=== PATIENT | female | born 1975 | race Caucasian/White ===

== ENCOUNTER 2017-07-24 09:00 | Emergency (ER) | payer OTHER ==
[~2017-07-24] VITALS: Ht 149.9 cm; Wt 113.4 kg
[~2017-07-24 09:00] MED LIST: ADDERALL 10 MG10 MG PO; AMBIEN 5 MG TABL5 M1 PO; APAP W/CODEINE1 TA2 PO; BACTRIM DS TAB1 EACH PO; BENADRYL25 MG PO; BENTYL 10 MG CA10 MG PO; COLESTIPOL HCL1 G1 PO; CREON 10 CAPSUL1 CA1 PER TUBE; CREON DR 36,001 EACH PO; DIFLUCAN150 MG PO; EFFEXOR XR75 MG PO; FLAGYL500 MG PO; FLEXERIL PO; HYDROCODON-ACE1 EAC7 PO; HYDROCODONE-AP1 EAC6 PO; HYDROXYCHLOROQ200 M1 PO; IBUPROFEN 800800 M1 PO; IBUPROFEN 800800 MG PO; KEFLEX500 MG PO; MACROBID 100 M100 M2 PO; MEDROLDOSEPACK PO; NEURONTIN 300300 M1 PO; NEURONTIN 400M400 M2 PO; NEXIUM40 MG PO; NORCO 5-325 TA1 EAC1 PO; NORCO 5-325 TA1 EACH PO; NORFLEX100 MG PO; OXYBUTYNIN 5 MG5 M2 PO; PANTOPRAZOLE SO40 M1 PO; PHENERGAN 25 MG25 M1 PO; PREDNISONE 10 M10 M1 PO; PROMS25 WY RECTAL; REGLAN 10 MG TA10 MG PO; REQUIP XL4 MG PO; RESTORIL7.5 MG PO; ROBAXIN500 MG PO; SEROQUEL 25 MG25 M1 PO; SILVADENE20 GM TP; SULFAZINE EC500 MG PO; TRAMADOL 50 MG50 MG; VALIUM2 MG PO; XANAX 0.25 MG0.25 MG PO; XANAX 0.5 MG0.5 MG PO; ZANTAC 150MG T150 MG PO
[2017-07-24] MEDS ORDERED: ONDANSETRON HCL4 M2 PO (09:08)
[2017-07-24] MEDS ORDERED: CARAFATE 1 GM TA1 G1 PO (09:08)
[2017-07-24] MEDS ORDERED: PRILOSEC2.5 MG PO (09:09)
[2017-07-24 09:36] LABS: URINE BILIRUBIN NEGATIVE (Negative); URINE BLOOD NEGATIVE (Negative); URINE CLARITY CLEAR; URINE COLOR YELLOW; URINE GLUCOSE-RANDOM NEGATIVE (Negative); URINE KETONES NEGATIVE (Negative); URINE LEUKOCYTES-REFLEX NEGATIVE (Negative); URINE NITRITE-REFLEX NEGATIVE (Negative); URINE PROTEIN NEGATIVE (Negative); URINE SPECIFIC GRAVITY 1.015 (1.005-1.030); URINE UROBILINOGEN 0.2 E.U./dl (0.2-1.0)
[2017-07-24 10:06] LABS: ABSOLUTE BASOPHILS 0.1 thou/uL (0.0-0.2); ABSOLUTE EOSINOPHILS 0.1 thou/uL (0.0-0.7); ABSOLUTE LYMPHOCYTES 1.6 thou/uL (0.8-5.3); ABSOLUTE MONOCYTES 0.6 thou/uL (0.0-1.2); ABSOLUTE NEUTROPHILS 4.6 thou/uL (1.6-8.1); EOSINOPHILS 1.9 %; HEMATOCRIT 36.8 % (37.0-47.0); HEMOGLOBIN 12.2 gm/dL (12.0-15.0); LYMPHOCYTES 23.4 %; MCH 30.9 pg (26.0-34.0); MCV 93.5 fL (80.0-100.0); MONOCYTES 8.2 %; MPV 7.8 fl. (7.2-11.1); NUCLEATED RBCS 0 /100WBC; PLATELET COUNT* 239 thou/uL (150-400); POLYS 65.5 %; RBC 3.94 mil/uL (4.20-5.00); WBC 6.9 thou/uL (4.0-11.0)
[2017-07-24 10:11] LABS: ANION GAP 9 mmol/L (7-16); BUN 17 mg/dL (7-18); CALCIUM 8.2 mg/dL (8.5-10.1); CHLORIDE 107 mmol/L (98-107); CO2 25 mmol/L (21-32); CREATININE 0.8 mg/dL (0.6-1.3); GLUCOSE 77 mg/dL (70-99); POTASSIUM 4.3 mmol/L (3.5-5.1); SODIUM 141 mmol/L (136-145)
[2017-07-24 10:17] LABS: ALBUMIN 3.4 g/dL (3.4-5.0); ALKALINE PHOSPHATASE 52 U/L (46-116); AMYLASE 41 U/L (25-115); LIPASE 110 U/L (73-393); SGOT 17 U/L (15-37); SGPT 20 U/L (30-65); TOTAL BILIRUBIN 0.2 mg/dL (<0.1-1.0); TOTAL PROTEIN 6.3 g/dL (6.4-8.2); TROPONIN-I LEVEL <0.06 ng/mL (<0.06)
[2017-07-24] MEDS ORDERED: NORCO 5-325 TA1 EACH PO (11:27)
[2017-07-24 11:32] VITALS: BP 152/70
--- NOTE | 2017-07-24 17:27 | EKG ---
[place] [address] ELECTROCARDIOGRAM REPORT Name: CARLOS A HEADLEY Room: [facility]#: [id number] Admission: 07/24/17 Attend Phys: Discharge: 07/24/17 Date of : 71 Report #: [id number] THIS REPORT FOR: //name// [facility] ED Test Date: 2017-07-24 Test Time: 09:38:43 Pat Name: CARLOS A HEADLEY Department: Room: Gender: F Cone Tender: Latoya BATRES : 1975 Requested By: Anika Emerson Order Number: [id number] MD: Ranjit Marcum Measurements Intervals [place] Rate: 70 P: 67 TX: 167 QRS: 62 QRSD: 91 T: 48 QT: 393 QTc: 425 Interpretive Statements Sinus rhythm Compared to ECG 05/30/2013 15:55:53 No significant changes Electronically Signed On 07-24-2017 17:27:35 COMMUNITY LEADER by Ranjit Marcum [email or web address] <ELECTRONICALLY SIGNED> By: Ranjit Marcum MD, [facility] 07/24/17 1727 0938 7 Ranjit Marcum MD, FACC /EPI
[2017-09-17] MEDS ORDERED: XANAX1 MG PO (10:34)
[2017-09-17] MEDS ORDERED: PHENERGAN 25 MG25 M1 PO (10:36)
[2017-09-17] MEDS ORDERED: SEROQUEL 50 MG50 MG PO (10:37)
[2017-09-17] MEDS ORDERED: BENTYL 10 MG CA10 M1 PO (10:38)
[2017-09-17] MEDS ORDERED: NORCO 5-325 TA1 EACH PO (12:21)
== END 2017-07-24 11:33 | disposition home or self-care (01) ==
LOC: M.ERS 09:00
PROVIDERS: Personal Emergency Response Attendant
DX: R10.12 Left upper quadrant pain (principal); R10.84 Generalized abdominal pain; K21.9 Gastro-esophageal reflux disease without esophagitis; Z90.49 Acquired absence of other specified parts of digestive tract; Z90.710 Acquired absence of both cervix and uterus; Z98.890 Other specified postprocedural states; Z88.8 Allergy status to other drugs, medicaments and biological substances; F10.99 Alcohol use, unspecified with unspecified alcohol-induced disorder

== ENCOUNTER 2018-12-24 18:29 | Emergency (ER) | payer OTHER ==
[~2018-12-24] VITALS: Ht 149.9 cm; Wt 72.6 kg
[~2018-12-24 18:29] MED LIST changes: +BENTYL 10 MG CA10 M1 PO; +CARAFATE 1 GM TA1 G1 PO; +ONDANSETRON HCL4 M2 PO; +PRILOSEC2.5 MG PO; +SEROQUEL 50 MG50 MG PO; +XANAX1 MG PO
[2018-12-24] MEDS ORDERED: SYNTHROID50 MCG PO (18:51)
[2018-12-24] MEDS ORDERED: ATENOLOL 25 MG25 M1 PO (18:52)
[2018-12-24] MEDS ORDERED: METHOTREXATE 22.5 MG PO (18:52)
[2018-12-24] MEDS ORDERED: PROTONIX40 M2 PO (18:52)
[2018-12-24] MEDS ORDERED: PREDNISONE 20 M20 MG PO (19:36)
[2018-12-24] MEDS ORDERED: BENADRYL25 MG PO (19:36)
[2018-12-24] MEDS ORDERED: PEPCID20 MG PO (19:36)
[2018-12-24 20:02] VITALS: BP 133/63
== END 2018-12-24 20:03 | disposition home or self-care (01) ==
LOC: M.ERS 18:29
DX: T78.40XA Allergy, unspecified, initial encounter (principal); K21.9 Gastro-esophageal reflux disease without esophagitis; F41.9 Anxiety disorder, unspecified; F32.9 Major depressive disorder, single episode, unspecified; J45.909 Unspecified asthma, uncomplicated; M06.9 Rheumatoid arthritis, unspecified; J44.9 Chronic obstructive pulmonary disease, unspecified; Z98.890 Other specified postprocedural states; Z90.49 Acquired absence of other specified parts of digestive tract; Z90.710 Acquired absence of both cervix and uterus; Z88.8 Allergy status to other drugs, medicaments and biological substances; Z88.6 Allergy status to analgesic agent; Z91.048 Other nonmedicinal substance allergy status

== ENCOUNTER 2019-01-09 19:28 | Emergency (ER) | payer OTHER ==
[~2019-01-09] VITALS: Ht 149.9 cm; Wt 68.0 kg
[~2019-01-09 19:28] MED LIST changes: +ATENOLOL 25 MG25 M1 PO; +METHOTREXATE 22.5 MG PO; +PEPCID20 MG PO; +PREDNISONE 20 M20 MG PO; +PROTONIX40 M2 PO; +SYNTHROID50 MCG PO
[2019-01-09 20:24] LABS: ABSOLUTE MONOCYTES 0.8 thou/uL (0.0-1.2); ABSOLUTE NEUTROPHILS 2.2 thou/uL (1.6-8.1); HEMATOCRIT 34.8 % (37.0-47.0); HEMOGLOBIN 11.5 gm/dL (12.0-15.0); LYMPHOCYTES 39.7 %; MCH 31.1 pg (26.0-34.0); MCHC 32.9 g/dL (28.0-37.0); MCV 94.5 fL (80.0-100.0); MONOCYTES 15.1 %; NUCLEATED RBCS 0 /100WBC; PLATELET COUNT* 213 thou/uL (150-400); POLYS 43.2 %; RBC 3.69 mil/uL (4.20-5.00); RDW-CV 12.5 % (10.5-14.5); WBC 5.1 thou/uL (4.0-11.0)
[2019-01-09 20:32] LABS: CALCIUM 8.7 mg/dL (8.5-10.1); CREATININE 0.7 mg/dL (0.6-1.3); POTASSIUM 4.2 mmol/L (3.5-5.1)
[2019-01-09 20:37] LABS: ALBUMIN 2.7 g/dL (3.4-5.0); TOTAL BILIRUBIN 0.4 mg/dL (<0.1-1.0); TOTAL PROTEIN 5.6 g/dL (6.4-8.2)
[2019-01-09] MEDS ORDERED: NORCO 5-325 TA1 EAC1 PO (21:26)
[2019-01-09] MEDS ORDERED: ONDANSETRON HCL4 M2 PO (21:26)
[2019-01-09 21:57] VITALS: BP 108/57
== END 2019-01-09 21:59 | disposition home or self-care (01) ==
LOC: M.ERS 19:28
PROVIDERS: Physician Assistant
DX: S16.1XXA Strain of muscle, fascia and tendon at neck level, initial encounter (principal); S09.8XXA Other specified injuries of head, initial encounter; R10.12 Left upper quadrant pain; M06.9 Rheumatoid arthritis, unspecified; F41.9 Anxiety disorder, unspecified; J44.9 Chronic obstructive pulmonary disease, unspecified; K21.9 Gastro-esophageal reflux disease without esophagitis; G47.00 Insomnia, unspecified; F32.9 Major depressive disorder, single episode, unspecified; Z88.5 Allergy status to narcotic agent; Z91.048 Other nonmedicinal substance allergy status; Z88.8 Allergy status to other drugs, medicaments and biological substances; Z98.890 Other specified postprocedural states; Z90.89 Acquired absence of other organs; Z90.49 Acquired absence of other specified parts of digestive tract; Z90.710 Acquired absence of both cervix and uterus; V49.50XA Passenger injured in collision with unspecified motor vehicles in traffic accident, initial encounter; Y93.89 Activity, other specified; Y92.89 Other specified places as the place of occurrence of the external cause; Y99.8 Other external cause status

== ENCOUNTER 2019-01-16 02:21 | Emergency (ER) | payer OTHER ==
[~2019-01-16] VITALS: Ht 149.9 cm; Wt 68.0 kg
[2019-01-16 04:40] LABS: URINE BILIRUBIN NEGATIVE (Negative); URINE BLOOD NEGATIVE (Negative); URINE CLARITY CLEAR; URINE COLOR YELLOW; URINE GLUCOSE-RANDOM NEGATIVE (Negative); URINE KETONES TRACE (Negative); URINE LEUKOCYTES-REFLEX NEGATIVE (Negative); URINE NITRITE-REFLEX NEGATIVE (Negative); URINE PROTEIN TRACE (Negative); URINE SPECIFIC GRAVITY >= 1.030 (1.005-1.030); URINE UROBILINOGEN 0.2 E.U./dl (0.2-1.0)
[2019-01-16 04:49] LABS: AMP/METHAMP Negative (Negative); BARBITURATES Negative (Negative); BENZODIAZEPINES POSITIVE (Negative); COCAINE Negative (Negative); METHADONE Negative (Negative); OPIATES Negative (Negative); PCP Negative (Negative); THC POSITIVE (Negative)
[2019-01-16 04:53] LABS: ABSOLUTE LYMPHOCYTES 1.9 thou/uL (0.8-5.3); ABSOLUTE MONOCYTES 0.9 thou/uL (0.0-1.2); ABSOLUTE NEUTROPHILS 4.7 thou/uL (1.6-8.1); BASOPHILS 0.5 %; EOSINOPHILS 0.4 %; HEMATOCRIT 33.6 % (37.0-47.0); HEMOGLOBIN 11.1 gm/dL (12.0-15.0); LYMPHOCYTES 24.5 %; MCH 30.9 pg (26.0-34.0); MCV 93.5 fL (80.0-100.0); MONOCYTES 12.4 %; NUCLEATED RBCS 0 /100WBC; PLATELET COUNT* 292 thou/uL (150-400); POLYS 62.2 %; RDW-CV 12.5 % (10.5-14.5); WBC 7.6 thou/uL (4.0-11.0)
[2019-01-16 05:02] LABS: CALCIUM 8.8 mg/dL (8.5-10.1); CREATININE 0.5 mg/dL (0.6-1.3); POTASSIUM 4.4 mmol/L (3.5-5.1)
[2019-01-16 05:07] LABS: ALBUMIN 2.9 g/dL (3.4-5.0); MAGNESIUM 1.2 mg/dL (1.8-2.4); TOTAL BILIRUBIN 0.4 mg/dL (<0.1-1.0); TOTAL PROTEIN 5.9 g/dL (6.4-8.2)
[2019-01-16] MEDS ORDERED: REGLAN 10 MG TA10 MG PO (05:43)
[2019-01-16 06:03] VITALS: BP 138/65
== END 2019-01-16 06:07 | disposition home or self-care (01) ==
LOC: M.ERS 02:21
PROVIDERS: Emergency Medicine
DX: S80.01XA Contusion of right knee, initial encounter (principal); S80.02XA Contusion of left knee, initial encounter; S40.012A Contusion of left shoulder, initial encounter; S50.11XA Contusion of right forearm, initial encounter; S60.031A Contusion of right middle finger without damage to nail, initial encounter; S00.81XA Abrasion of other part of head, initial encounter; E83.42 Hypomagnesemia; R11.2 Nausea with vomiting, unspecified; K21.9 Gastro-esophageal reflux disease without esophagitis; M06.9 Rheumatoid arthritis, unspecified; N80.9 Endometriosis, unspecified; J44.9 Chronic obstructive pulmonary disease, unspecified; F41.9 Anxiety disorder, unspecified; F32.9 Major depressive disorder, single episode, unspecified; K58.9 Irritable bowel syndrome, unspecified; G47.00 Insomnia, unspecified; Z98.890 Other specified postprocedural states; Z90.49 Acquired absence of other specified parts of digestive tract; Z90.710 Acquired absence of both cervix and uterus; Z90.89 Acquired absence of other organs; Z88.5 Allergy status to narcotic agent; Z91.048 Other nonmedicinal substance allergy status; Z88.8 Allergy status to other drugs, medicaments and biological substances; W01.198A Fall on same level from slipping, tripping and stumbling with subsequent striking against other object, initial encounter; Y93.01 Activity, walking, marching and hiking; Y92.410 Unspecified street and highway as the place of occurrence of the external cause; Y99.8 Other external cause status

== ENCOUNTER 2019-07-31 14:46 | Emergency (ER) | payer OTHER ==
[~2019-07-31] VITALS: Ht 149.9 cm; Wt 59.0 kg
[2019-07-31] MEDS ORDERED: TRAMADOL 50 MG50 MG PO (16:00)
[2019-07-31 16:12] VITALS: BP 118/72
== END 2019-07-31 16:14 | disposition home or self-care (01) ==
LOC: M.ERS 14:46
DX: S93.601A Unspecified sprain of right foot, initial encounter (principal); F41.9 Anxiety disorder, unspecified; J44.9 Chronic obstructive pulmonary disease, unspecified; F32.9 Major depressive disorder, single episode, unspecified; K21.9 Gastro-esophageal reflux disease without esophagitis; J45.909 Unspecified asthma, uncomplicated; Z90.49 Acquired absence of other specified parts of digestive tract; Z90.710 Acquired absence of both cervix and uterus; Z90.89 Acquired absence of other organs; Z88.5 Allergy status to narcotic agent; Z88.8 Allergy status to other drugs, medicaments and biological substances; Z79.899 Other long term (current) drug therapy; X50.1XXA Overexertion from prolonged static or awkward postures, initial encounter; Y93.01 Activity, walking, marching and hiking; Y92.89 Other specified places as the place of occurrence of the external cause; Y99.8 Other external cause status

== ENCOUNTER 2020-01-09 17:31 | Inpatient (IN) | payer OTHER, MEDICAID ==
[~2020-01-09] VITALS: Ht 149.9 cm; Wt 72.6 kg
[~2020-01-09 17:31] MED LIST changes: +TRAMADOL 50 MG50 MG PO
[2020-01-09 17:33] VITALS: BP 115/73
[2020-01-09] MEDS ORDERED: TRANSDERM-SCOP1 EACH TOP (17:38)
[2020-01-09 17:57] LABS: ABSOLUTE BASOPHILS 0.1 thou/uL (0.0-0.2); ABSOLUTE LYMPHOCYTES 2.6 thou/uL (0.8-5.3); ABSOLUTE MONOCYTES 0.8 thou/uL (0.0-1.2); ABSOLUTE NEUTROPHILS 4.6 thou/uL (1.6-8.1); BASOPHILS 0.6 %; EOSINOPHILS 0.1 %; HEMATOCRIT 35.7 % (37.0-47.0); HEMOGLOBIN 12.2 gm/dL (12.0-15.0); LYMPHOCYTES 32.6 %; MCH 32.8 pg (26.0-34.0); MCHC 34.2 g/dL (28.0-37.0); MCV 95.9 fL (80.0-100.0); MONOCYTES 9.8 %; MPV 7.7 fl. (7.2-11.1); NUCLEATED RBCS 0 /100WBC; PLATELET COUNT* 257 thou/uL (150-400); POLYS 56.9 %; RBC 3.72 mil/uL (4.20-5.00); RDW-CV 13.8 % (10.5-14.5); WBC 8.1 thou/uL (4.0-11.0)
[2020-01-09 18:05] LABS: CREATININE 1.2 mg/dL (0.6-1.3); POTASSIUM 3.8 mmol/L (3.5-5.1)
[2020-01-09 18:11] LABS: ALBUMIN 3.7 g/dL (3.4-5.0); TOTAL BILIRUBIN 0.3 mg/dL (<0.1-1.0); TOTAL PROTEIN 6.6 g/dL (6.4-8.2)
[2020-01-09 22:00] VITALS: BP 117/84; BP 119/87
[2020-01-10 00:10] LABS: URINE BILIRUBIN NEGATIVE (Negative); URINE BLOOD NEGATIVE (Negative); URINE CLARITY CLEAR; URINE COLOR YELLOW; URINE GLUCOSE-RANDOM NEGATIVE (Negative); URINE KETONES NEGATIVE (Negative); URINE LEUKOCYTES-REFLEX NEGATIVE (Negative); URINE NITRITE-REFLEX NEGATIVE (Negative); URINE PROTEIN TRACE (Negative); URINE SPECIFIC GRAVITY >= 1.030 (1.005-1.030); URINE UROBILINOGEN 0.2 E.U./dl (0.2-1.0)
[2020-01-10 00:15] LABS: AMP/METHAMP Negative (Negative); BARBITURATES Negative (Negative); BENZODIAZEPINES POSITIVE (Negative); COCAINE Negative (Negative); METHADONE Negative (Negative); OPIATES Negative (Negative); PCP Negative (Negative); THC POSITIVE (Negative)
[2020-01-10 04:00] VITALS: BP 103/66
[2020-01-10 05:32] LABS: ABSOLUTE LYMPHOCYTES 2.4 thou/uL (0.8-5.3); ABSOLUTE MONOCYTES 0.6 thou/uL (0.0-1.2); ABSOLUTE NEUTROPHILS 3.3 thou/uL (1.6-8.1); BASOPHILS 0.5 %; EOSINOPHILS 0.4 %; HEMATOCRIT 36.7 % (37.0-47.0); HEMOGLOBIN 12.4 gm/dL (12.0-15.0); LYMPHOCYTES 37.6 %; MCH 32.7 pg (26.0-34.0); MCHC 33.9 g/dL (28.0-37.0); MCV 96.2 fL (80.0-100.0); MPV 8.3 fl. (7.2-11.1); NUCLEATED RBCS 0 /100WBC; PLATELET COUNT* 214 thou/uL (150-400); POLYS 52.5 %; RBC 3.81 mil/uL (4.20-5.00); RDW-CV 13.5 % (10.5-14.5); WBC 6.4 thou/uL (4.0-11.0)
[2020-01-10 05:34] LABS: CALCIUM 7.5 mg/dL (8.5-10.1); CREATININE 0.9 mg/dL (0.6-1.3); POTASSIUM 3.6 mmol/L (3.5-5.1)
[2020-01-10 08:00] VITALS: BP 97/64
--- NOTE | 2020-01-10 13:27 | NUR ---
Pt is A&O. States that she is in the process of moving back in with her dad. Independent and active. No DME. Hx of HH post home IVABX approx 2 years ago. No hx of SNF. Goal is home at dc, no needs anticipated. Neuro following.
--- NOTE | 2020-01-10 14:01 | NUR ---
ASSUMED PT CARE AT 0730, PT AOX4 AND HAS NO C/O SHORTNESS OF BREATH BUT C/O MINOR HEADACHE. SEIZURE PRECAUTIONS IN PLACE. PT ENDED UP HAVING SOME RHYTHMIC TREMORS LATE THIS MORNING, DR NOTIFIED AND PRN XANAX AND ZOFRAN GIVEN. NEURO WORKED W/ PT THIS MORNING WELL, EEG AND MRI OF HEAD ORDERED. PT SO IN ROOM TODAY AND UPDATED ON POC. PT GOAL IS TO MAINTAIN SAFETY AND FIND CAUSE OF TREMORS. AM ASSESSMENT CHARTED, MEDS PER MAR, HOURLY ROUNDING OBSERVED, FALL PRECAUTIONS IN PLACE, CALL LIGHT W/IN REACH, WILL CONTINUE POC.
[2020-01-10 16:02] VITALS: BP 126/90
--- NOTE | 2020-01-10 17:23 | EKG ---
[place] [address] ELECTROCARDIOGRAM REPORT Name: CARLOS A HEADLEY Room: [address] ADM IN .R.#: [id number] Admission: 01/09/20 Attend Phys: Spenser Peraza, Discharge: Date of : 71 Date of Service: 01/09/20 1729 Report #: [id number] THIS REPORT FOR: //name// [facility] ED Test Date: 2020-01-09 Test Time: 17:29:15 Pat Name: CARLOS A HEADLEY Department: Room: [facility] Gender: F Senior Information Security Architect: CCD : 1975 Requested By: Gregor Hoffmann Order Number: [id number] MD: Ranjit Marcum Measurements Intervals [place] Rate: 113 P: 72 WI: 159 QRS: 62 QRSD: 88 T: 36 QT: 341 QTc: 468 Interpretive Statements Sinus tachycardia Compared to ECG 07/24/2017 09:38:43 Sinus rate has increased Electronically Signed On 01-10-2020 17:23:37 CDT by Ranjit Marcum [email or web address] <ELECTRONICALLY SIGNED> By: Ranjit Marcum MD, [facility] 01/10/20 1723 1729 Ranjit Marcum MD, [facility] /EPI
--- NOTE | 2020-01-10 18:48 | NUR ---
NO ACUTE CHANGES THROUGHOUT SHIFT, PT'S TREMORS STOPPED THIS AFTERNOON AND HAVEN'T COME BACK. MRI AND EEG COMPLETE, SEE NOTES. C/O HEADACHE THIS AFTERNOON TREATED W/ PRN PAIN MEDS W/ SOME RELIEF.
[2020-01-10 19:44] VITALS: BP 100/73
[2020-01-11] VITALS: BP 96/56
[2020-01-11 04:00] VITALS: BP 96/57
--- NOTE | 2020-01-11 06:51 | NUR ---
PT A&OX4, ON ROOM AIR, SEIZURE PRECAUTIONS IN PLACE, VSS, PAIN MED REQUESTED AND GIVEN ORDERED, PT UP WITH SB ASSIST. PT SR ON TELE MONITOR. HOURLY ROUNDINGS COMPLETE. WILL CONTINUE TO MONITOR.
[2020-01-11 08:00] VITALS: BP 157/116
--- NOTE | 2020-01-11 11:01 | NUR ---
Pt discharging today, no needs.
--- NOTE | 2020-01-11 11:54 | NUR ---
ASSUMED CARE OF PATIENT THIS AM AT 0730. PATIENT IS ALERT AND ORIENTED X 4. SHE C/O A HEADACHE THIS AM. NO SEIZURE ACTIVITY NOTED. O2 SAT WAS LOW AT 85% ON ROOM AIR. PATIENT INSTRUCTED TO TCDB. NO IMPROVEMENT NOTED. PATIENT PLACED ON 2 LITERS NC AND SATS CAME UP TO 100%. O2 DECREASED BACK TO [address] IN TO ROUND AND DISCHARGE ORDERS INITIATED. PATIENT WAS MEDICATED FOR HEADACHE X 1. SHE SAID THE PAIN WAS DECREASED. TELE HAS SHOWN SR WITH 1DAVB.
[2020-01-11 12:00] VITALS: BP 106/76
[2020-01-11 12:16] VITALS: BP 157/116
--- NOTE | 2020-01-12 03:46 | CON ---
[address] [address] CONSULTATION Name: KAYODECARLOS AMI MCCLELLAN Room: [address] M.R.#: [id number] Admission: 01/09/20 Attend Phys: Spenser Peraza MD Discharge: 01/11/20 Date of : 71 Report #: [id number] THIS REPORT FOR: //name// cc: DAVID MARTINEZ KEVIN ~ THIS REPORT FOR: //name// CC: Spenser MARTINEZ DATE OF SERVICE: 01/10/2020 HISTORY OF PRESENT ILLNESS: This is a 44-year-old female patient who was seen by me for a new onset seizure. The patient gives a history that she was at [facility] and she felt everything moving in slow motion and the things started becoming distant and looks like she had a grand mal seizure. She had tongue biting and she was postictal. She was having some pain in the TMJ and she was recently started on tramadol. It was started about 1 week ago and she was taking about 3 of them a day. She has not taken any tramadol before. She never had any seizures before either. REVIEW OF SYSTEMS: Positive for multiple GI problems. She is taking multiple medications for that. She does have a history of cervical radiculopathy. She also has a history of anxiety and depression. She denies any history of diabetes or hyperglycemia. She had a prior hysterectomy according to her. She had a gastroplasty in the past. She had hernia, carpal tunnel syndrome, tonsillectomy, cholecystectomy, history of rheumatoid arthritis, insomnia, thyroid problem, irritable bowel syndrome and other GI problems. She also has GI reflux. This was her relevant 14-point review of system. PAST MEDICAL HISTORY: Negative for seizure. FAMILY HISTORY: Positive for seizure, but is not definite. Mother has some question of seizure, but she was never officially diagnosed for that. SOCIAL HISTORY: She drinks alcohol on special occasions. She drinks about 1 beer last week, she does smoke marijuana. PHYSICAL EXAMINATION: Indicates she is alert, responsive, able to follow simple and complex command. Her speech, concentration, fund of knowledge and memory is at her baseline. Cranial nerve examination 2-12 looks unremarkable except her visual field examinaion was very unusual and she needs to see an ophthalmogist as OP because no body comes here jimenez . She has symmetrical strength, sensation, reflexes and tone in all 4 [place] [address] CONSULTATION Name: CARLOS A HEADLEY Room: [address]#: [id number] Admission: 01/09/20 Attend Phys: Spenser Peraza MD Discharge: 01/11/20 Date of : 71 Report #: [id number] is no papilledema. There is no carotid bruit in this patient. Her cardiac examination appears unremarkable. No respiratory difficulty or rhonchi. Pulses are present. Blood pressure is 97/64, respirations 16, pulse is 66, temperature is 97.5. LABORATORY DATA: White count is normal at 6.4 in spite of her episode of seizure. Her GFR is 67 and she had multiple visits to Emergency Room and it has always been normal. Her hearing and vision looks adequate. She is a well-developed individual who does not have any dysmorphic features. IMPRESSION: New onset of seizure. It is likely that this is related to Ultram. I asked her to discontinue that because that is a known side effect of Ultram. We still need to look for any etiology for the patient's seizures. I suggested an MRI of the brain with and without contrast and I discussed her options including option of doing a noncontrast MRI. She wants to proceed with MRI of the brain with and without contrast and is aware of occasional allergic and irreversible dermatological side effect, which can occur. We will also check an EEG. If both of them are negative, I think the presumptive diagnosis will be that it is related to her tramadol. In that case, we just need to see if there is any reoccurrence and proceed accordingly. She does need to take seizure precautions and irrespective of the etiology she cannot drive at least for 6 months, both in [place] and [place]. Other state laws may be different. Thank you very much for this referral and we will follow the patient along with you. <ELECTRONICALLY SIGNED> By: Jack Cooper MD 01/12/20 0346 0932 [id number] Cooper MD /nt
== END 2020-01-11 16:37 | disposition home or self-care (01) | DRG 101 ==
LOC: M.ERS 17:31 → M.2W 18:44 → M.TBA-ER 18:44 → M.2W 22:17
PROVIDERS: Emergency Medicine Emergency Medical Services; ADMIT Internal Medicine; ATTEND Internal Medicine
DX: G40.909 Epilepsy, unspecified, not intractable, without status epilepticus (principal); G93.40 Encephalopathy, unspecified; T40.4X5A Adverse effect of other synthetic narcotics, initial encounter; F41.9 Anxiety disorder, unspecified; G47.00 Insomnia, unspecified; J44.9 Chronic obstructive pulmonary disease, unspecified; K21.9 Gastro-esophageal reflux disease without esophagitis; F32.9 Major depressive disorder, single episode, unspecified; F12.90 Cannabis use, unspecified, uncomplicated; G24.01 Drug induced subacute dyskinesia; F17.210 Nicotine dependence, cigarettes, uncomplicated; M54.12 Radiculopathy, cervical region; M06.9 Rheumatoid arthritis, unspecified; Z20.828 Contact with and (suspected) exposure to other viral communicable diseases; Y92.89 Other specified places as the place of occurrence of the external cause; Z98.84 Bariatric surgery status; Z90.710 Acquired absence of both cervix and uterus; Z90.49 Acquired absence of other specified parts of digestive tract; Z87.11 Personal history of peptic ulcer disease; Z79.899 Other long term (current) drug therapy; Z88.5 Allergy status to narcotic agent; Z88.8 Allergy status to other drugs, medicaments and biological substances; Z91.09 Other allergy status, other than to drugs and biological substances

== ENCOUNTER 2020-02-15 10:30 | Emergency (ER) | payer OTHER, MEDICAID ==
[~2020-02-15] VITALS: Ht 149.9 cm; Wt 68.0 kg
[~2020-02-15 10:30] MED LIST changes: +TRANSDERM-SCOP1 EACH TOP
[2020-02-15 10:37] VITALS: BP 117/66
--- NOTE | 2020-02-15 14:37 | EKG ---
[place] [address] ELECTROCARDIOGRAM REPORT Name: CARLOS A HEADLEY Room: [facility]#: [id number] Admission: 02/15/20 Attend Phys: Discharge: 02/15/20 Date of : 71 Date of Service: 02/15/20 [facility] Report #: [id number] THIS REPORT FOR: //name// [facility] ED Test Date: 2020-02-15 Test Time: 10:37:14 Pat Name: CARLOS A HEADLEY Department: Room: Gender: Aluminum Siding Installer: : 1975 Requested By: Sanjay Ramirez Order Number: [id number] MD: Sebastian Pelaez Measurements Intervals [place] Rate: 99 P: 68 HI: 151 QRS: 60 QRSD: 84 T: 51 QT: 326 QTc: 419 Interpretive Statements Sinus rhythm Baseline wander in lead(s) II,III,aVR,aVF,V2,V3,V4,V5,V6 Compared to ECG 01/09/2020 17:29:15 Sinus tachycardia no longer present Electronically Signed On 02-15-2020 14:36:58 CDT by Sebastian Pelaez [email or web address] <ELECTRONICALLY SIGNED> By: Sebastian Pelaez MD, FAC 02/15/20 1436 1037 1037 Sebastian Pelaez MD, FAC /EPI
== END 2020-02-15 11:18 | disposition home or self-care (01) ==
LOC: M.ERS 10:30
DX: R56.9 Unspecified convulsions (principal); K21.9 Gastro-esophageal reflux disease without esophagitis; J45.909 Unspecified asthma, uncomplicated; J44.9 Chronic obstructive pulmonary disease, unspecified; M06.9 Rheumatoid arthritis, unspecified; F41.9 Anxiety disorder, unspecified; F32.9 Major depressive disorder, single episode, unspecified; Z98.890 Other specified postprocedural states; Z90.49 Acquired absence of other specified parts of digestive tract; Z90.710 Acquired absence of both cervix and uterus; Z91.048 Other nonmedicinal substance allergy status; Z88.6 Allergy status to analgesic agent; Z88.8 Allergy status to other drugs, medicaments and biological substances

== ENCOUNTER 2020-08-03 15:49 | Emergency (ER) | payer OTHER, MEDICAID ==
[~2020-08-03] VITALS: Ht 162.6 cm; Wt 90.7 kg
[2020-08-03 16:04] LABS: URINE BLOOD NEGATIVE (Negative); URINE CLARITY CLEAR; URINE COLOR YELLOW; URINE GLUCOSE-RANDOM NEGATIVE (Negative); URINE KETONES NEGATIVE (Negative); URINE LEUKOCYTES-REFLEX NEGATIVE (Negative); URINE NITRITE-REFLEX NEGATIVE (Negative); URINE PROTEIN NEGATIVE (Negative); URINE SPECIFIC GRAVITY 1.025 (1.005-1.030); URINE UROBILINOGEN 0.2 E.U./dl (0.2-1.0)
[2020-08-03 16:05] LABS: ICTOTEST (BILI CONFIRMATORY) Negative (Negative); URINE BILIRUBIN 1+ (Negative)
[2020-08-03 16:16] LABS: ABSOLUTE BASOPHILS 0.1 thou/uL (0.0-0.2); ABSOLUTE EOSINOPHILS 0.1 thou/uL (0.0-0.7); ABSOLUTE LYMPHOCYTES 3.5 thou/uL (0.8-5.3); ABSOLUTE MONOCYTES 0.5 thou/uL (0.0-1.2); ABSOLUTE NEUTROPHILS 4.3 thou/uL (1.6-8.1); EOSINOPHILS 0.7 %; HEMATOCRIT 43.2 % (37.0-47.0); HEMOGLOBIN 14.4 gm/dL (12.0-15.0); LYMPHOCYTES 41.3 %; MCH 32.1 pg (26.0-34.0); MCHC 33.3 g/dL (28.0-37.0); MCV 96.6 fL (80.0-100.0); MONOCYTES 6.3 %; MPV 7.4 fl. (7.2-11.1); NUCLEATED RBCS 0 /100WBC; PLATELET COUNT* 292 thou/uL (150-400); POLYS 50.7 %; RBC 4.48 mil/uL (4.20-5.00); RDW-CV 13.7 % (10.5-14.5); WBC 8.4 thou/uL (4.0-11.0)
[2020-08-03 16:24] LABS: CALCIUM 8.3 mg/dL (8.5-10.1); CREATININE 1.3 mg/dL (0.6-1.3); POTASSIUM 3.9 mmol/L (3.5-5.1)
[2020-08-03 16:28] LABS: ALBUMIN 3.8 g/dL (3.4-5.0); TOTAL BILIRUBIN 0.3 mg/dL (<0.1-1.0); TOTAL PROTEIN 7.4 g/dL (6.4-8.2)
[2020-08-03 22:07] VITALS: BP 130/94
== END 2020-08-03 22:07 | disposition home or self-care (01) ==
LOC: M.ERS 15:49
PROVIDERS: Physician Assistant
DX: K92.2 Gastrointestinal hemorrhage, unspecified (principal); J44.9 Chronic obstructive pulmonary disease, unspecified; M06.9 Rheumatoid arthritis, unspecified; G43.909 Migraine, unspecified, not intractable, without status migrainosus; K21.9 Gastro-esophageal reflux disease without esophagitis; Z88.5 Allergy status to narcotic agent; Z88.8 Allergy status to other drugs, medicaments and biological substances; Z98.890 Other specified postprocedural states; Z90.49 Acquired absence of other specified parts of digestive tract; Z90.89 Acquired absence of other organs; Z90.710 Acquired absence of both cervix and uterus

== ENCOUNTER 2020-11-26 14:13 | Emergency (ER) | payer OTHER, MEDICAID ==
[~2020-11-26] VITALS: Ht 149.9 cm; Wt 88.5 kg
[2020-11-26] MEDS ORDERED: LEXAPRO20 MG PO (14:36)
[2020-11-26] MEDS ORDERED: VISTARIL 25 MG25 M1 PO (14:37)
[2020-11-26] MEDS ORDERED: INDERAL LA120 M1 PO (14:37)
[2020-11-26] MEDS ORDERED: DOXYCYCLINE 10100 M2 PO (14:37)
[2020-11-26] MEDS ORDERED: HUMIRA40 MG/0.1 SUBQ (14:37)
[2020-11-26] MEDS ORDERED: ZANAFLEX4 M1 PO (14:38)
[2020-11-26] MEDS ORDERED: NAPROSYN500 MG PO (15:35)
[2020-11-26] MEDS ORDERED: MEDROLDOSEPACK PO (15:35)
[2020-11-26] MEDS ORDERED: NORCO5 PO (15:41)
[2020-11-26 15:43] VITALS: BP 112/65
== END 2020-11-26 15:44 | disposition home or self-care (01) ==
LOC: M.ERS 14:13
DX: M54.32 Sciatica, left side (principal); J44.9 Chronic obstructive pulmonary disease, unspecified; G43.909 Migraine, unspecified, not intractable, without status migrainosus; Z88.5 Allergy status to narcotic agent; Z88.8 Allergy status to other drugs, medicaments and biological substances; Z88.6 Allergy status to analgesic agent; Z79.899 Other long term (current) drug therapy

== ENCOUNTER 2021-03-16 14:41 | Emergency (ER) | payer OTHER, MEDICAID ==
[~2021-03-16] VITALS: Ht 149.9 cm; Wt 89.8 kg
[~2021-03-16 14:41] MED LIST changes: +DOXYCYCLINE 10100 M2 PO; +HUMIRA40 MG/0.1 SUBQ; +INDERAL LA120 M1 PO; +LEXAPRO20 MG PO; +NAPROSYN500 MG PO; +NORCO5 PO; +VISTARIL 25 MG25 M1 PO; +ZANAFLEX4 M1 PO
[2021-03-16] MEDS ORDERED: TIZANIDINE HCL 22 M1 PO (15:02)
[2021-03-16] MEDS ORDERED: PROTONIX40 M4 PO (15:02)
[2021-03-16 15:15] VITALS: BP 131/82
== END 2021-03-16 15:15 | disposition home or self-care (01) ==
LOC: M.ERS 14:41
DX: G40.89 Other seizures (principal); M06.9 Rheumatoid arthritis, unspecified; F41.9 Anxiety disorder, unspecified; J45.909 Unspecified asthma, uncomplicated; J44.9 Chronic obstructive pulmonary disease, unspecified; F32.9 Major depressive disorder, single episode, unspecified; G43.909 Migraine, unspecified, not intractable, without status migrainosus; E89.0 Postprocedural hypothyroidism; Z98.890 Other specified postprocedural states; Z90.49 Acquired absence of other specified parts of digestive tract; Z90.89 Acquired absence of other organs; Z90.710 Acquired absence of both cervix and uterus; Z79.1 Long term (current) use of non-steroidal anti-inflammatories (NSAID); Z79.891 Long term (current) use of opiate analgesic; Z79.899 Other long term (current) drug therapy; Z88.8 Allergy status to other drugs, medicaments and biological substances; Z88.5 Allergy status to narcotic agent; Z88.6 Allergy status to analgesic agent; Z88.3 Allergy status to other anti-infective agents; Z91.048 Other nonmedicinal substance allergy status; Z91.09 Other allergy status, other than to drugs and biological substances

== ENCOUNTER 2021-03-28 11:52 | Emergency (ER) | payer OTHER, MEDICAID ==
[~2021-03-28] VITALS: Ht 149.9 cm; Wt 86.2 kg
[~2021-03-28 11:52] MED LIST changes: +PROTONIX40 M4 PO; +TIZANIDINE HCL 22 M1 PO
[2021-03-28 12:27] LABS: ABSOLUTE BASOPHILS 0.1 thou/uL (0.0-0.2); ABSOLUTE EOSINOPHILS 0.1 thou/uL (0.0-0.7); ABSOLUTE LYMPHOCYTES 2.5 thou/uL (0.8-5.3); ABSOLUTE MONOCYTES 0.7 thou/uL (0.0-1.2); ABSOLUTE NEUTROPHILS 3.5 thou/uL (1.6-8.1); EOSINOPHILS 1.4 %; HEMATOCRIT 38.3 % (37.0-47.0); HEMOGLOBIN 12.5 gm/dL (12.0-15.0); LYMPHOCYTES 36.7 %; MCH 30.5 pg (26.0-34.0); MCHC 32.7 g/dL (28.0-37.0); MCV 93.3 fL (80.0-100.0); MPV 8.3 fl. (7.2-11.1); NUCLEATED RBCS 0 /100WBC; PLATELET COUNT* 259 thou/uL (150-400); POLYS 50.9 %; RDW-CV 18.8 % (10.5-14.5); WBC 6.9 thou/uL (4.0-11.0)
[2021-03-28 12:35] LABS: CALCIUM 7.5 mg/dL (8.5-10.1); POTASSIUM 4.2 mmol/L (3.5-5.1)
[2021-03-28 12:39] LABS: ALBUMIN 3.3 g/dL (3.4-5.0); TOTAL BILIRUBIN 0.2 mg/dL (<0.1-1.0); TOTAL PROTEIN 6.8 g/dL (6.4-8.2)
[2021-03-28] MEDS ORDERED: PREDNISONE 20 M20 M1 PO (13:29)
[2021-03-28] MEDS ORDERED: PROAIR HFA8.5 GM INH (13:29)
[2021-03-28 13:30] VITALS: BP 120/78
--- NOTE | 2021-03-28 14:04 | EKG ---
[place] [address] ELECTROCARDIOGRAM REPORT Name: CARLOS A HEADLEY Room: [facility]#: [id number] Admission: 03/28/21 Attend Phys: Discharge: 03/28/21 Date of : 71 Date of Service: 03/28/21 1157 Report #: [id number] THIS REPORT FOR: //name// [facility] ED Test Date: 2021-03-28 Test Time: 11:57:15 Pat Name: CARLOS A HEADLEY Department: Room: Gender: F Humanities Coordinator: MARI : 1975 Requested By: Jaquan Vance Order Number: [id number] MD: Moises Potts Measurements Intervals [place] Rate: 78 P: 77 [place]: 56 QRS: 68 QRSD: 95 T: 43 QT: 415 QTc: 473 Interpretive Statements Sinus rhythm Short [place] interval Baseline wander in lead(s) I Compared to ECG 02/15/2020 10:37:14 Short [place] interval now present Electronically Signed On 03-28-2021 14:04:03 CDT by Moises Potts [email or web address] <ELECTRONICALLY SIGNED> By: Moises Potts MD, FACC 03/28/21 1404 1157 1157 Moises Potts MD, FAC /EPI
== END 2021-03-28 13:30 | disposition home or self-care (01) ==
LOC: M.ERS 11:52
PROVIDERS: Emergency Medicine
DX: S50.12XA Contusion of left forearm, initial encounter (principal); Z20.822 Contact with and (suspected) exposure to COVID-19; J44.1 Chronic obstructive pulmonary disease with (acute) exacerbation; R56.9 Unspecified convulsions; K21.9 Gastro-esophageal reflux disease without esophagitis; M06.9 Rheumatoid arthritis, unspecified; F41.9 Anxiety disorder, unspecified; J45.909 Unspecified asthma, uncomplicated; G43.909 Migraine, unspecified, not intractable, without status migrainosus; F32.9 Major depressive disorder, single episode, unspecified; Z79.899 Other long term (current) drug therapy; Z90.49 Acquired absence of other specified parts of digestive tract; Z90.710 Acquired absence of both cervix and uterus; Z90.89 Acquired absence of other organs; Z88.5 Allergy status to narcotic agent; Z88.6 Allergy status to analgesic agent; X58.XXXA Exposure to other specified factors, initial encounter; Y93.89 Activity, other specified; Y92.89 Other specified places as the place of occurrence of the external cause; Y99.8 Other external cause status